=== PATIENT | female | born 1965 | race Caucasian/White ===

== ENCOUNTER 2023-12-29 09:02 | Outpatient (CLI) | payer OTHER, SELFPAY ==
--- NOTE | ~2023-12-29 | XR_ITS ---
XR knee RT 3V DATE: 12/29/2023 09:23 INDICATION: Chronic pain throughout right knee for over 20 years TECHNIQUE: Bettles and standing AP and lateral views COMPARISON: None FINDINGS: Small suprapatellar knee joint effusion is suggested. Slight periarticular spurring at the patellofemoral, medial and lateral compartments but joint spaces are relatively preserved. No fracture, dislocation, periosteal reaction or bone destruction. No radiopaque intra-articular loos e body or chondrocalcinosis. IMPRESSION: Slight tricompartment osteoarthritis; possible small suprapatellar knee joint effusion Reviewed, dictated and finalized at location D. SPORTATION DIRECTOR
--- NOTE | ~2023-12-29 | XR_ITS ---
XR lumbar spine min 4V DATE: 12/29/2023 09:23 INDICATION: Right mid back pain, chronic. No injury. TECHNIQUE: AP, lateral, coned lateral lumbosacral and bilateral oblique views COMPARISON: None FINDINGS: Mild lumbar dextroscoliosis. Included lower thoracic and lumbar pedicles are intact. No fracture or bone destruction is evident. There is degenerative change at the apophyseal joints, more prominent along the lower lumbar and lumb osacral area, with associated 4 mm grade 1 anterolisthesis at L4-5. Moderate degenerative disc disease at L1-2, mild degenerative disease at L2-3. Mild loss of height at L4-5 disc space. The sacroiliac joints are intact. IMPRESSION: Grade 1 anterolisthesis at L4-5 due to degenerative changes apophyseal joints Multilevel mild to moderate degenerative disc disease, greatest at L1-2 Mild lumbar dextroscoliosis Reviewed, dictated and finalized at location D. 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
== END 2023-12-29 09:03 | disposition home or self-care (01) ==
LOC: ANHIMG 09:05
PROVIDERS: PCP Family Medicine; Visit Provider Family Medicine
DX: M53.3 Sacrococcygeal disorders, not elsewhere classified (principal); M17.11 Unilateral primary osteoarthritis, right knee; M51.36 Other intervertebral disc degeneration, lumbar region
CPT/HCPCS: 72110; 73562

== ENCOUNTER 2024-09-05 10:13 | Outpatient (CLI) | payer OTHER, SELFPAY ==
--- NOTE | ~2024-09-05 | DEXA_ITS ---
Bone Density Report Name: ELIZABETH LEÓN Age: 58 Sex: Female Ethnicity: White Date of : 1965 Indication: postmenopausal; screening for osteoporosis; height loss; Referring Provider: LOUISA, MARTINA Study: Bone densitometry was performed. Exam Date: September 05, 2024 Accession number: [id number] Bone Density: Region BMD T-score Z-score Classification AP Spine(L1-L4) 0.946 -0.9 0.3 Normal Femoral Neck (Left) 0.772 -0.7 0.4 Normal Total Hip (Left) 0.989 0.4 1.2 Normal Femoral Neck (Right) 0.760 -0.8 0.3 Normal Total Hip (Right) 0.984 0.3 1.1 Normal Total Hip Mean 0.987 0.4 1.2 Normal World Health Organization criteria for BMD impression classify patients as: Normal (T-score at or above -1.0), Osteopenia (T-score between -1.0 and -2.5), or Osteoporosis (T-score at or below -2.5). 10-year Fracture Risk: FRAX not reported because: All T-scores for Spine Total, Hip Total, Femoral Neck at or above -1.0 Clinical Information Provided by Patient: Smokes Patient maximum height was 64.0 Drinks caffeinated beverages Onset of menses at age 15 Number of children 1 Impression: The patient has normal bone mass. The patient has risk factors, including: smoking. Discussion: BONE DENSITY IS ABOVE THE MINIMUM DESIRABLE LEVEL AT ALL SKELETAL SITES TESTED. This patient?s bone mineral density is above the minimum desirable level (T-score -1.0 or better) at all sites measured. The patient should follow a healthful lifestyle (good nutrition with adequate calcium and vitamin D, and appropriate weight-bearing exercise). Follow-Up: Consider repeating this study in 5 years or sooner if there is some new clinical indication. Reported by: JIL on 09/05/2024 10:42:00 AM. Reviewed, dictated and finalized at location ATylor SLADE
== END 2024-09-05 10:14 | disposition home or self-care (01) ==
LOC: ANHIMG 10:15
PROVIDERS: PCP Family Medicine; Visit Provider Nurse Practitioner Women's Health
DX: Z78.0 Asymptomatic menopausal state (principal)
CPT/HCPCS: 77080

== ENCOUNTER 2024-09-07 10:21 | Outpatient (CLI) | payer OTHER, SELFPAY ==
--- NOTE | ~2024-09-07 | MM_ITS ---
EXAMINATION: MM screening [facility] BI w reginaldo HISTORY: Screening TECHNIQUE: Craniocaudal and mediolateral oblique 3-D tomosynthesis images were obtained and synthetic 2-D images were generated. CAD analysis was submitted and interpreted. COMPARISON: Comparison to multiple prior studies sequentially, with oldest reviewed study dated 11/2014. BREAST PARENCHYMAL COMPOSITION: Not dense: There are scattered areas of fibroglandular density. FINDINGS: There is no evidence of suspicious mass, calcification, or architectural distortion to sugg est malignancy in either breast. There has been no suspicious interval change. IMPRESSION: 1. No mammographic evidence of malignancy. 2. Recommend routine screening mammography in one year. BI-RADS Category 1: Negative Reviewed, dictated and finalized at location B.
== END 2024-09-07 10:22 | disposition home or self-care (01) ==
LOC: MICIMG 10:21
PROVIDERS: PCP Family Medicine; Visit Provider Nurse Practitioner Women's Health
DX: Z12.31 Encounter for screening mammogram for malignant neoplasm of breast (principal)
CPT/HCPCS: 77063; 77067

== ENCOUNTER 2024-11-20 06:34 | Outpatient (CLI) | payer OTHER, SELFPAY ==
--- NOTE | ~2024-11-20 | CT_ITS ---
CT Scan of the Chest without Contrast: Clinical Indication: Lung cancer screening, nicotine dependence Technique: Contiguous sections were acquired throughout the chest without intravenous contrast. Dose reduction technique was used on this scan by utilizing automated exposure control and iterative recon struction technique. The dose-length product (DLP) was 149.38 mGy-cm. Findings: There is no evidence of any significant mediastinal, hilar or axillary lymphadenopathy. The mediastin al soft tissues appear normal. There is no evidence of pleural or pericardial effusion. There is focal grouping of groundglass nodule/opacities in the right lower lobe, most compatible with focal pneumonia. Images through the upper abdomen reveal no abnormalities. Impression: Lung RADS 2-S: Benign appearance. 12 month follow-up screening CT advised. Suspected focal pneumonia in the right lower lobe. Consider short-term follow-up CT to assess for res olution, as indicated. Reviewed, dictated and finalized at [facility]. L ROD BUSTER Impression: Lung RADS 2-S: Benign appearance. 12 month follow-up screening CT advised. Suspected focal pneumonia in the right lower lobe. Consider short-term follow-u p CT to assess for resolution, as indicated.
== END 2024-11-20 06:35 | disposition home or self-care (01) ==
PROVIDERS: PCP Student in an Organized Health Care Education/Training Program; Visit Provider Student in an Organized Health Care Education/Training Program
DX: Z12.2 Encounter for screening for malignant neoplasm of respiratory organs (principal); Z87.891 Personal history of nicotine dependence
CPT/HCPCS: 71271

== ENCOUNTER 2025-02-24 11:04 | Outpatient (CLI) | payer OTHER, SELFPAY ==
--- NOTE | ~2025-02-24 | CT_ITS ---
CT Scan of the Chest without Contrast: Clinical Indication: Pneumonia Technique: Contiguous sections were acquired throughout the chest without intravenous contrast. Dose reduction technique was used on this scan by utilizing automated exposure control and iterative recon struction technique. The dose-length product (DLP) was 182.78 mGy-cm. COMPARISON: 11/20/2024 Findings: There is no evidence of any significant mediastinal, hilar or axillary lymphadenopathy. The mediastin al soft tissues appear normal. There is no evidence of pleural or pericardial effusion. 2 mm left lower lobe pulmonary nodule noted near the fissure. Lungs are otherwise clear. Images through the upper abdomen reveal no abnormalities. Impression: 2 mm left lower lobe pulmonary nodule near the fissure. Otherwise clear lungs. Previously noted right lower lobe airspace disease is resolved. Reviewed, dictated and finalized at [facility]. Impression: 2 mm left lower lobe pulmonary nodule near the fissure. Otherwise clear lungs. Previously noted right lower lobe airspace disease is resolved.
== END 2025-02-24 11:05 | disposition home or self-care (01) ==
PROVIDERS: PCP Student in an Organized Health Care Education/Training Program; Visit Provider Student in an Organized Health Care Education/Training Program
DX: J18.9 Pneumonia, unspecified organism (principal); R91.1 Solitary pulmonary nodule
CPT/HCPCS: 71250

== ENCOUNTER 2025-08-12 08:39 | Outpatient (CLI) | payer OTHER, SELFPAY ==
--- NOTE | ~2025-08-12 | XR_ITS ---
EXAMINATION: XR_[id number]_CR, 08/12/2025 8:50 CDT HISTORY: M25.569 - Pain in unspecified knee, PAIN POSTERIOR COMPARISON: No comparisons available. Findings: No acute fracture or malalignment. No significant degenerative changes. Soft tissues unremarkable. Impression: No acute fracture or malalignment. Reviewed, dictated and finalized at location P. Impression: No acute fracture or malalignment.
--- NOTE | ~2025-08-12 | XR_ITS ---
EXAMINATION: [id number]_CR, 08/12/2025 8:50 CDT HISTORY: M25.569 - Pain in unspecified knee, PAIN ANTERIOR COMPARISON: No comparisons available. Findings: No acute fracture or malalignment. Moderate tricompartmental degenerative changes Soft tissues unremarkable. Impression: No acute fracture or malalignment. Reviewed, dictated and finalized at location P. Impression: No acute fracture or malalignment.
== END 2025-08-12 08:40 | disposition home or self-care (01) ==
PROVIDERS: PCP Family Medicine
DX: M25.562 Pain in left knee (principal); M25.561 Pain in right knee
CPT/HCPCS: 73560

== ENCOUNTER 2025-09-13 07:23 | Outpatient (CLI) | payer OTHER, SELFPAY ==
--- NOTE | ~2025-09-13 | MM_ITS ---
EXAMINATION: MM screening [facility] BI w reginaldo HISTORY: Screening TECHNIQUE: Craniocaudal and mediolateral oblique 3-D tomosynthesis images were obtained and synthetic 2-D images were generated. CAD analysis was submitted and interpreted. COMPARISON: Comparison to multiple prior studies sequentially, with oldest reviewed study dated 12/23/2016. BREAST PARENCHYMAL COMPOSITION: Not dense: There are scattered areas of fibroglandular density. FINDINGS: There is no evidence of suspicious mass, calcification, or architectural distortion to suggest malignancy in either breast. There has been no suspicious interval change. IMPRESSION: 1. No mammographic evidence of malignancy. 2. Recommend routine screening mammography in one year. BI-RADS Category 1: Negative Reviewed, dictated and finalized at location B.
== END 2025-09-13 07:24 | disposition home or self-care (01) ==
LOC: MICIMG 07:24
PROVIDERS: PCP Obstetrics & Gynecology Gynecology; Visit Provider Family Medicine
DX: Z12.31 Encounter for screening mammogram for malignant neoplasm of breast (principal)
CPT/HCPCS: 77063; 77067